=== PATIENT | female | born 1975 | race American Indian/Alaskan Native ===

== ENCOUNTER 2018-08-23 09:21 | Emergency (ER) | payer OTHER ==
[2018-08-23 09:30] VITALS: BP 129/81
== END 2018-08-23 11:15 | disposition left against medical advice (07) ==
LOC: ED 09:21
DX: M54.9 Dorsalgia, unspecified (principal); Z53.21 Procedure and treatment not carried out due to patient leaving prior to being seen by health care provider

== ENCOUNTER 2021-01-02 23:22 | Emergency (ER) | payer OTHER ==
[2021-01-02 23:40] VITALS: BP 140/92
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
--- NOTE | 2021-01-03 00:49 | XRay Report ---
Thoracic spine 3 views INDICATION: Back pain FINDINGS: Scoliotic curvature the spine convexity to the right. Pedicles appear normal throughout. No severe loss of vertebral body height. Endplate changes are seen throughout. No severe compression in jury is seen. There is continued pain CT is recommended. Lumbar spine 3 views INDICATION: Back pain FINDINGS: Alignment appears normal. No compression fractures seen. Visualized sacrum appears normal. Signer Name: Jose Saravia MD Signed: 01/03/2021 12:45 AM Workstation Name: [id number]
[2021-01-03] MEDS ORDERED: HYDROcodone/ACETAMINOPHEN 5-325 MG TAB PO STA (01:17)
== END 2021-01-03 01:30 | disposition home or self-care (01) ==
LOC: ED 23:22
DX: M79.18 Myalgia, other site (principal); M54.9 Dorsalgia, unspecified; V89.2XXA Person injured in unspecified motor-vehicle accident, traffic, initial encounter; Y93.89 Activity, other specified; Y92.488 Other paved roadways as the place of occurrence of the external cause; Y99.8 Other external cause status
CPT/HCPCS: 72072; 72100; 99283